=== PATIENT | female | born 1975 | race Caucasian/White ===

== ENCOUNTER 2017-11-26 11:56 | Emergency (ER) | payer MEDICAID, SELFPAY | END 2017-11-26 14:40 | disposition left against medical advice (07) | PROVIDERS: Emergency Provider Nurse Practitioner Family; Family Provider Pediatrics; Visit Provider Nurse Practitioner Family | DX: M53.3 Sacrococcygeal disorders, not elsewhere classified (principal); Z53.21 Procedure and treatment not carried out due to patient leaving prior to being seen by health care provider | CPT/HCPCS: 99211 ==

== ENCOUNTER → 2017-11-26 | Outpatient (CLI) | payer MEDICAID, SELFPAY | PROVIDERS: Family Provider Pediatrics; Visit Provider Orthopaedic Surgery | DX: M25.561 Pain in right knee (principal) | CPT/HCPCS: 73564 ==

== ENCOUNTER → 2018-04-09 16:07 | Outpatient (CLI) | payer MEDICAID, SELFPAY ==
--- NOTE | 2018-04-09 16:23 | MR_ITS ---
MR knee RT wo con HISTORY: ITS.REASON: RT knee pain and instability ORDERING PHYSICIAN: Sergio Hoover MD PATIENT AGE: 42 years COMPARISON: 11/26/2017 TECHNIQUE: Standard multiplanar multiecho sequences are performed without contrast. FINDINGS: The cruciate ligaments and collateral ligaments are intact. No evidence of meniscal tear. There is grade 1 signal intensity in the posterior of the medial meniscus nonspecific. The patellar tendon and quadriceps tendon are intact. Patellar cartilage is well preserved. Small knee joint effusion. There is a small septated fluid collection along the posterior aspect of the distal femur. This measures up to 2.6 x cephalad to caudad 1.8 cm AP and 2.5 cm transverse. This is contiguous with a small amount of fluid that tracks to the posterior popliteal area just along the superior aspect of the insertion of the gastrocnemius muscle probably related to a septated bursal collection of fluid. There is a small T2 hyperintensity region in the intramedullary portion of the proximal tibia measuring 9 mm nonspecific. IMPRESSION: 1. No evidence of internal arrangement. 2. Septated cystic area in the posterior aspect of the distal thigh centrally and may be related to bursitis. No other significant anomalies are evident
== END ==
PROVIDERS: Family Provider Pediatrics; PCP Pediatrics; Visit Provider Orthopaedic Surgery
DX: M25.561 Pain in right knee (principal)
CPT/HCPCS: 73721